=== PATIENT | female | born 1990 | race American Indian/Alaskan Native ===

== ENCOUNTER 2019-04-09 20:52 | Observation (INO) | payer OTHER ==
[2019-04-09] MEDS ORDERED: LACTATED RINGERS 1,000 ML IV ONE (21:53)
[2019-04-09 22:57] LABS: Bilirubin,Urine NEG (Negative); Blood,Urine NEG (Negative); Color,Urine Yellow (Yellow); Mucus,Urine FEW /HPF; Protein,Urine <15 mg/dL mg/dL (Negative)
[2019-04-09] MEDS ORDERED: MORPHINE 2 MG/1 ML INJ IV ONE (23:11)
[2019-04-09] MEDS ORDERED: diphenhydrAMINE 50 MG/ML VIAL IV ONE (23:33)
--- NOTE | 2019-04-10 00:12 | Ultrasound Report ---
ULTRASOUND RENAL INDICATION / CLINICAL INFORMATION: patient with right flank pain. COMPARISON: None available. FINDINGS: RIGHT KIDNEY: Length = 12 cm. [normal > 9 cm] - Parenchymal Thickness = 1.7 cm. [normal > 1.5 cm] - Echogenicity: Normal. - Hydronephrosis: None. - Cyst or mass: 7 mm simple cyst in the upper pole - Stones: None seen. LEFT KIDNEY: Length = 11.3 cm. [normal > 9 cm] - Parenchymal Thickness = 1.9 cm. [normal > 1.5 cm] - Echogenicity: Normal. - Hydronephrosis: None. - Cyst or mass: No significant abnormality. - Stones: None seen. URINARY BLADDER: No significant abnormality. FREE FLUID: None. ADDITIONAL FINDINGS: None. IMPRESSION: 1. No significant abnormality. Signer Name: Len Rodrigues MD Signed: 04/10/2019 12:08 AM Workstation Name: [id number]
[2019-04-10] MEDS ORDERED: diphenhydrAMINE 50 MG/ML VIAL IV PRN (01:23)
[2019-04-10] MEDS: MORPHINE 2 MG/1 ML INJ IV PRN ×2 (03:39→10:51)
[2019-04-10] MEDS: LACTATED RINGERS 1,000 ML IV SCH ×2 (03:39→08:03)
--- NOTE | 2019-04-10 06:38 | History and Physical Report ---
History of Present Illness Date of examination: 04/10/19 Date of admission: 04/09/19 21:53 Chief complaint: right flank pain, nausea and vomiting for 3 days History of present illness: Pt is a 28 year old -[place] female KEENA 05/25/19 at 33w4d present s with right flank pain for the past three days accompanied by nausea and vomiting. She reports this pain feels similar to how she felt when she passed a kidney stone some years ago. At that time, her right side was also affected. She denies vaginal bleeding or leakage of fluid. She has had care with Dr Guzman at [facility], but her records are not available at this time. She reports the has been uncomplicated thus far. Past History Past Medical History: no pertinent history Past Surgical History: no surgical history Social history: no significant social history - Obstetrical History Expected Date of Delivery: 05/25/19 Actual Gestation: 33 Week(s) 4 Day(s) : 3 Para: 2 Hx # Term Pregnancies: 2 Number of Pregnancies: 0 Spontaneous Abortions: 0 Induced : 0 Number of Living Children: 2 Medications and Allergies Allergies Allergy/AdvReac Type Severity Reaction Status Date / Time acetaminophen [From Tylenol] Allergy Hives Verified 04/09/19 21:56 ketorolac [From Toradol] Allergy Swelling Verified 04/09/19 21:56 tramadol Allergy Hives Verified 04/09/19 21:55 metoclopramide [From Reglan] AdvReac Unknown Verified 04/09/19 21:55 Home Medications Medication Instructions Recorded Confirmed Last Taken Type No Known Home Medications [No 04/10/19 04/10/19 Unknown History Reported Home Medications] Active Meds: Active Medications Diphenhydramine HCl (Benadryl) 25 mg IV Q6H PRN PRN Reason: Itching Last Admin: 04/10/19 04:54 Dose: 25 mg Documented by: Lactated Ringer's (Lactated Ringers) 1,000 mls @ 125 mls/hr IV DIRECT RAH Last Admin: 04/10/19 03:39 Dose: 125 mls/hr Documented by: Morphine Sulfate (Morphine) 2 mg IV Q4H PRN PRN Reason: Pain, Moderate (4-6) Last Admin: 04/10/19 03:39 Dose: 2 mg Documented by: Review of Systems All systems: negative - Vital Signs Vital signs: Vital Signs Pulse BP 82 108/63 04/09/19 21:40 04/09/19 21:40 Temp Pulse Resp BP Pulse Ox 97.4 F L 79 18 101/63 04/10/19 05:02 04/10/19 03:18 04/10/19 03:39 04/10/19 03:18 - Physical Exam Breasts: Positive: deferred Cardiovascular: Regular rate Lungs: Positive: Clear to auscultation Abdomen: Positive: soft (gravid ), other (right flank pain) Uterus: Positive: enlarged (gravid ) Extremities: Positive: normal - Obstetrical FHR: auscultation normal Uterine Contraction Pattern: Absent Uterine Tone Measurement Phase: Resting Uterine Contraction Intensity: Mild Results All other labs normal. Assessment and Plan A: IUP at 33w4d Right flank pain with h/o nephrolithiasis, suspected nephrolithiasis Multiple allergies P: Admit for observation Renal ultrasound Urology consult IV hydration Closely monitor clinically Strain urine
[2019-04-10 10:56] VITALS: BP 107/65
== END 2019-04-10 14:45 | disposition left against medical advice (07) ==
LOC: TRG 20:52 → LD 21:53 → TRG 21:53 → LD 04-10 05:54
PROVIDERS: ADMIT Obstetrics & Gynecology; ATTEND Obstetrics & Gynecology
DX: O21.2 Late vomiting of pregnancy (principal); O26.893 Other specified pregnancy related conditions, third trimester; R10.9 Unspecified abdominal pain; Z87.442 Personal history of urinary calculi; Z88.6 Allergy status to analgesic agent; Z88.8 Allergy status to other drugs, medicaments and biological substances; Z3A.33 33 weeks gestation of pregnancy
CPT/HCPCS: 76770; 81001; 96361; 96374; 96375; 96376; G0378; J1200; J2270; J7120